=== PATIENT | male | born 1960 | race Caucasian/White ===

== ENCOUNTER 2024-07-13 22:48 | Inpatient (IN) | payer MEDICARE ==
[~2024-07-13] VITALS: Ht 195.6 cm; Wt 110.2 kg
[2024-07-14] MEDS ORDERED: FAMOTIDINE/PF INJ 20 MG/2 ML VIAL IV ONE (00:16)
[2024-07-14] MEDS ORDERED: ONDANSETRON HCL/PF 4 MG/2 ML VIAL ONE (00:16)
[2024-07-14] MEDS: IV NS 0.9% 1,000 ML BAG IV ONE ×2 (00:19→00:20)
[2024-07-14] MEDS: ONDANSETRON HCL/PF 4 MG/2 ML VIAL IVP ONE (00:20)
[2024-07-14] MEDS: FAMOTIDINE/PF INJ 20 MG/2 ML VIAL IV ONE (00:20)
[2024-07-14 00:24] LABS: BASOPHILS % (AUTO) 0.2 % (0.0-2.0); HEMATOCRIT 43 % (39-51); HEMOGLOBIN 14.3 g/dL (13.5-17.5); LYMPHOCYTES # (AUTO) 0.7 K/uL (0.8-4.8); LYMPHOCYTES % (AUTO) 5.9 % (20.0-44.0); MEAN CORPUSCULAR HEMOGLOBIN 30 PG (26.0-33.0); MEAN CORPUSCULAR HGB CONC 33 g/dl (31.0-36.0); MEAN CORPUSCULAR VOLUME 89 fL (80-96); MONOCYTES # (AUTO) 0.8 K/uL (0.1-1.30); MONOCYTES % (AUTO) 7.1 % (2.0-12.0); NEUTROPHILS # (AUTO) 10.1 K/uL (1.8-8.9); NEUTROPHILS % (AUTO) 86.8 % (43.0-81.0); PLATELET COUNT (AUTO) 300 K/uL (150-450); RED CELL DISTRIBUTION WIDTH 13.6 % (11.5-15.0); WHITE BLOOD COUNT (AUTO) 11.6 K/uL (4.3-11.0)
[2024-07-14 00:46] LABS: ALBUMIN 3.6 g/dL (3.4-5.0); BILIRUBIN,DIRECT 0.2 mg/dL (0.0-0.2); BILIRUBIN,TOTAL 0.7 mg/dL (0.2-1.0); CALCIUM, SERUM 9.6 mg/dL (8.5-10.1); TOTAL PROTEIN, SERUM 7.3 g/dL (6.4-8.2)
[2024-07-14 00:59] LABS: CREATININE 28.4 mg/dL (0.6-1.3)
[2024-07-14] MEDS ORDERED: CALCIUM CHLORIDE 1,000 MG/10 ML DISP.SYRIN ONE (01:12)
[2024-07-14] MEDS ORDERED: SODIUM ZIRCONIUM CYCLOSILICATE 10 GM POWD.PACK ONE (01:12)
[2024-07-14] MEDS ORDERED: DEXTROSE 50%-WATER 50 ML DISP.SYRIN ONE (01:12)
[2024-07-14] MEDS ORDERED: INSULIN REGULAR, HUMAN 100 UNIT/ML 10 ML VIAL ONE (01:12)
[2024-07-14] MEDS: ALBUTEROL FS 2.5 MG/3 ML VIAL.NEB NEB ONE (01:14)
[2024-07-14] MEDS ORDERED: FUROSEMIDE 20 MG/2 ML VIAL ONE (01:18)
[2024-07-14 01:20] VITALS: O2SAT 98
[2024-07-14] MEDS ORDERED: ALBUTEROL FS 2.5 MG/3 ML VIAL.NEB ONE (01:25)
[2024-07-14 01:30] VITALS: O2SAT 99
[2024-07-14] MEDS: INSULIN REGULAR, HUMAN 100 UNIT/ML 10 ML VIAL IV ONE (01:30)
[2024-07-14] MEDS: SODIUM ZIRCONIUM CYCLOSILICATE 10 GM POWD.PACK PO ONE (01:30)
[2024-07-14] MEDS: DEXTROSE 50%-WATER 50 ML DISP.SYRIN IV ONE (01:30)
[2024-07-14] MEDS: CALCIUM CHLORIDE 1,000 MG/10 ML DISP.SYRIN IV ONE (01:47)
[2024-07-14] MEDS: FUROSEMIDE 40 MG/4 ML VIAL IV ONE (01:47)
[2024-07-14 01:55] LABS: LACTIC ACID 1.4 mmol/L (0.4-2.0)
[2024-07-14 01:57] LABS: NT-PRO BNP 769 pg/mL (0-125)
[2024-07-14] MEDS ORDERED: Z GUARD REMEDY 4 OZ OINT TP PRN (02:00)
[2024-07-14] MEDS ORDERED: MAGNESIUM HYDROXIDE 30 ML UDC PO PRN (02:00)
[2024-07-14] MEDS ORDERED: MAG HYDROX/AL HYDROX/SIMETH 30 ML UDC PO PRN (02:00)
[2024-07-14] MEDS ORDERED: VANCOMYCIN 1 GM in IV D5W 250 ML IV ONE (02:30)
[2024-07-14] MEDS: TAMSULOSIN 0.4 MG CAP.SR.24H PO SCH (04:41)
[2024-07-14] MEDS: CEFEPIME 1 GM in IV D5W 50 ML IV ONE (04:41)
[2024-07-14] MEDS ORDERED: CEFEPIME 1 GM VIAL ONE (04:42)
[2024-07-14 06:51] LABS: CALCIUM, SERUM 9.1 mg/dL (8.5-10.1)
[2024-07-14 06:53] LABS: CREATININE 27.3 mg/dL (0.6-1.3)
[2024-07-14] MEDS: VANCOMYCIN 1.5 GM in IV D5W 500 ML IV ONE (06:54)
[2024-07-14 08:20] VITALS: BP 151/95; TEMP 98.3; O2SAT 96
[2024-07-14] MEDS: Sodium Bicarbonate 100 MEQ in IV D5 / 0.2% NACL 1,000 ML IV PRN (09:30)
[2024-07-14] MEDS ORDERED: Sodium Bicarbonate 100 MEQ in IV D5/0.45 NACL 1,000 ML IV SCH (10:30)
[2024-07-14] MEDS: Sodium Bicarbonate 100 MEQ in IV D5/0.45 NACL 1,000 ML IV SCH (11:29)
[2024-07-14 11:52] LABS: ABG BASE EXCESS -15.9 mmol/L (-2.0-3.0); ABG PCO2 18.7 mmHg (35.0-48.0); ABG PH 7.274 (7.350-7.450); ABG PO2 103.4 mmHg (83.0-108.0); ABG TOTAL HEMOGLOBIN 14.5 G/dL (13.5-17.5); COHb 0.3 % (0.5-1.5); MetHb 0.4 % (0.0-1.5); O2Hb 96.3 % (94.0-97.0); SITE, ABG LEFT RADIAL
[2024-07-14 12:01] LABS: CALCIUM, SERUM 9.5 mg/dL (8.5-10.1)
[2024-07-14] MEDS: ACETAMINOPHEN 325 MG TABLET PO PRN (12:10)
[2024-07-14 12:19] LABS: CREATININE 28.2 mg/dL (0.6-1.3)
[2024-07-14 12:21] LABS: POTASSIUM 6.2 mmol/L (3.5-5.1)
[2024-07-14 12:30] VITALS: BP 138/89; TEMP 97.9; O2SAT 99
[2024-07-14] MEDS: SODIUM ZIRCONIUM CYCLOSILICATE 5 GM POWD.PACK PO SCH (12:58)
[2024-07-14] MEDS: HEPARIN SODIUM, PORCINE 5000 UNITS/1 ML VIAL SQ SCH (13:30)
[2024-07-14 16:00] VITALS: BP 130/90; TEMP 98.4; O2SAT 100
[2024-07-14] MEDS: APIXABAN 5 MG TABLET PO SCH (17:00)
[2024-07-14 20:00] VITALS: BP 146/92; TEMP 98.2; O2SAT 96
[2024-07-14 20:15] LABS: APPEARANCE,URINE SLIGHTLY CLOUDY (CLEAR); BILIRUBIN,URINE NEGATIVE (NEGATIVE); BLOOD, URINE 3+ Ery/uL (NEGATIVE); COLOR,URINE DARK YELLOW (YELLOW); KETONES,URINE TRACE mg/dL (NEGATIVE); LEUKOCYTE ESTERASE ,URINE TRACE (NEGATIVE); NITRITE, URINE POSITIVE (NEGATIVE); PROTEIN,URINE 3+ mg/dl (NEGATIVE); UGLUCOSE NEGATIVE (NEGATIVE)
[2024-07-14 20:18] LABS: ADD URINE CULTURE YES; BACTERIA,URINE 1+ /HPF (None Seen); HYALINE CASTS, URINE Moderate /LPF (None Seen); RBC,URINE 21-50 /HPF (0-2); SQUAMOUS EPITHELIAL CELL,UR Rare /HPF (None Seen)
[2024-07-14 20:19] LABS: URINE AMORPHOUS URATE Few /HPF (None Seen)
[2024-07-14] MEDS ORDERED: Sodium Bicarbonate 100 MEQ in IV D5 / 0.2% NACL 1,000 ML IV SCH (21:44)
[2024-07-14 23:53] LABS: BASOPHILS % (AUTO) 0.2 % (0.0-2.0); EOSINOPHILS % (AUTO) 0.2 % (0.0-6.0); HEMATOCRIT 43 % (39-51); HEMOGLOBIN 14.8 g/dL (13.5-17.5); LYMPHOCYTES # (AUTO) 0.6 K/uL (0.8-4.8); LYMPHOCYTES % (AUTO) 5.1 % (20.0-44.0); MEAN CORPUSCULAR HEMOGLOBIN 31 PG (26.0-33.0); MEAN CORPUSCULAR HGB CONC 35 g/dl (31.0-36.0); MEAN CORPUSCULAR VOLUME 88 fL (80-96); MONOCYTES # (AUTO) 1.1 K/uL (0.1-1.30); MONOCYTES % (AUTO) 9.6 % (2.0-12.0); NEUTROPHILS # (AUTO) 9.4 K/uL (1.8-8.9); NEUTROPHILS % (AUTO) 84.9 % (43.0-81.0); PLATELET COUNT (AUTO) 271 K/uL (150-450); RED BLOOD CELL COUNT(AUTO) 4.87 MIL/uL (4.5-6.0); RED CELL DISTRIBUTION WIDTH 13.7 % (11.5-15.0); WHITE BLOOD COUNT (AUTO) 11.1 K/uL (4.3-11.0)
[2024-07-15] VITALS: BP 157/99; TEMP 98.4; O2SAT 96
[2024-07-15 00:12] LABS: ALBUMIN 3.7 g/dL (3.4-5.0); BILIRUBIN,TOTAL 1.4 mg/dL (0.2-1.0); CALCIUM, SERUM 9.7 mg/dL (8.5-10.1); CREATININE 6.8 mg/dL (0.6-1.3); MAGNESIUM 2.2 mg/dL (1.8-2.4); PHOSPHORUS 4.6 mg/dL (2.5-4.9); POTASSIUM 3.8 mmol/L (3.5-5.1); TOTAL PROTEIN, SERUM 7.2 g/dL (6.4-8.2)
[2024-07-15 04:00] VITALS: BP 160/98; TEMP 98.2; O2SAT 96
[2024-07-15] MEDS: CEFEPIME 1 GM in IV D5W 50 ML IV SCH (04:23)
[2024-07-15 07:49] LABS: BASOPHILS % (AUTO) 0.2 % (0.0-2.0); EOSINOPHILS % (AUTO) 0.1 % (0.0-6.0); HEMATOCRIT 44 % (39-51); HEMOGLOBIN 15.1 g/dL (13.5-17.5); LYMPHOCYTES # (AUTO) 0.6 K/uL (0.8-4.8); LYMPHOCYTES % (AUTO) 6.3 % (20.0-44.0); MEAN CORPUSCULAR HEMOGLOBIN 30 PG (26.0-33.0); MEAN CORPUSCULAR HGB CONC 34 g/dl (31.0-36.0); MEAN CORPUSCULAR VOLUME 89 fL (80-96); MONOCYTES # (AUTO) 0.9 K/uL (0.1-1.30); MONOCYTES % (AUTO) 9.7 % (2.0-12.0); NEUTROPHILS # (AUTO) 7.9 K/uL (1.8-8.9); NEUTROPHILS % (AUTO) 83.7 % (43.0-81.0); PLATELET COUNT (AUTO) 272 K/uL (150-450); RED CELL DISTRIBUTION WIDTH 13.6 % (11.5-15.0); WHITE BLOOD COUNT (AUTO) 9.5 K/uL (4.3-11.0)
[2024-07-15 08:00] VITALS: BP 160/99; TEMP 99; O2SAT 95
[2024-07-15] MEDS: IV NS 0.9% 1,000 ML IV PRN (08:07)
[2024-07-15 08:11] LABS: CALCIUM, SERUM 9.5 mg/dL (8.5-10.1); CREATININE 3.8 mg/dL (0.6-1.3); MAGNESIUM 2.1 mg/dL (1.8-2.4); PHOSPHORUS 3.2 mg/dL (2.5-4.9)
[2024-07-15 12:00] VITALS: BP 158/100; TEMP 98.2; O2SAT 97
[2024-07-15] MEDS: ONDANSETRON HCL/PF 4 MG/2 ML VIAL IVP PRN (12:26)
[2024-07-15 13:53] LABS: CALCIUM, SERUM 9.8 mg/dL (8.5-10.1); CREATININE 2.2 mg/dL (0.6-1.3); POTASSIUM 4.1 mmol/L (3.5-5.1)
[2024-07-15 16:00] VITALS: BP 141/100; TEMP 98.1; O2SAT 96
[2024-07-15 20:00] VITALS: BP 146/100; TEMP 98.1; O2SAT 96
[2024-07-16] VITALS: BP 159/99; TEMP 99; O2SAT 97
[2024-07-16 04:00] VITALS: BP 143/98; TEMP 99.1; O2SAT 98
[2024-07-16 06:47] LABS: FREE PSA 1.36 ng/mL (0.00-45); PROSTATE SPECIFIC ANTIGEN SCR 15.1 ng/mL (0.00-4.00)
[2024-07-16 08:00] VITALS: BP 133/84; TEMP 98.2; O2SAT 99
[2024-07-16 09:43] LABS: MAGNESIUM 1.7 mg/dL (1.8-2.4); PHOSPHORUS 1.8 mg/dL (2.5-4.9)
[2024-07-16] MEDS ORDERED: CEPH-570 PO (10:13)
[2024-07-16] MEDS ORDERED: TAMS-12 PO (10:13)
[2024-07-16] MEDS: VANCOMYCIN HCL 1.25 GM in IV D5W 250 ML IV SCH (10:33)
[2024-07-16 12:09] VITALS: BP 147/92; TEMP 98.2; O2SAT 99
[2024-07-16 12:47] VITALS: BP 147/92
[2024-07-16] MEDS: METOPROLOL TARTRATE 50 MG TABLET PO SCH (12:47)
[2024-07-16 17:07] LABS: CALCIUM, SERUM 8.8 mg/dL (8.5-10.1); CREATININE 1.2 mg/dL (0.6-1.3); POTASSIUM 4.3 mmol/L (3.5-5.1)
== END 2024-07-16 14:29 | disposition home health service (06) | DRG 683 ==
LOC: ER 22:56 → TELE1 07-14 05:58 → TELE-TD 07-14 07:20 → TELE1 07-15 10:09
DX: N17.9 Acute kidney failure, unspecified (principal); E87.20 Acidosis, unspecified; N13.8 Other obstructive and reflux uropathy; N12 Tubulo-interstitial nephritis, not specified as acute or chronic; I48.91 Unspecified atrial fibrillation; E66.9 Obesity, unspecified; E87.5 Hyperkalemia; G47.33 Obstructive sleep apnea (adult) (pediatric); R33.8 Other retention of urine; R73.9 Hyperglycemia, unspecified; Z68.28 Body mass index [BMI] 28.0-28.9, adult; N13.30 Unspecified hydronephrosis
CPT/HCPCS: 36415; 36600; 71045-TC; 76770-TC; 80048-TC; 80053-TC; 80076-TC; 80202-TC; 81001; 82550-TC; 82553; 82803-TC; 83605-TC; 83690-TC; 83735-TC; 83880; 84100-TC; 84153-TC; 84154-TC; 84443-TC; 84484-TC; 85025-TC; 87040-TC; 87086-TC; 93307-TC; 94799-TC; G0378; J0692; J1815; J1940; J2405; J3371; J3490; J7030; J7060

== ENCOUNTER 2024-10-14 19:17 | Emergency (ER) | payer MEDICARE ==
[~2024-10-14] VITALS: Ht 193 cm; Wt 110.7 kg
[~2024-10-14 19:17] MED LIST: CEPH-570 PO; TAMS-12 PO
[2024-10-14 19:37] VITALS: BP 118/87; TEMP 98.2
[2024-10-14 20:28] VITALS: O2SAT 98
== END 2024-10-14 20:31 | disposition home or self-care (01) ==
LOC: ER 19:32
DX: R33.8 Other retention of urine (principal); N40.1 Benign prostatic hyperplasia with lower urinary tract symptoms; Z60.2 Problems related to living alone; Z79.899 Other long term (current) drug therapy